=== PATIENT | female | born 1965 | race Caucasian/White ===

== ENCOUNTER 2018-03-20 09:28 | Day surgery (SDC) | payer OTHER ==
[2018-03-20] MEDS ORDERED: LACTATED RINGER'S 1,000 ML IV (10:30)
[2018-03-20] MEDS ORDERED: BUPIVACAINE 0.5% (SDV) 30 ML INJ (11:20)
[2018-03-20] MEDS ORDERED: MIDAZOLAM 1 MG/ML 2 ML INJ (11:26)
[2018-03-20] MEDS ORDERED: ONDANSETRON 4 MG INJ (11:26)
[2018-03-20] MEDS ORDERED: METOCLOPRAMIDE 10 MG INJ (11:26)
[2018-03-20] MEDS ORDERED: FENTAnyl 50 MCG/ML VIAL (11:26)
[2018-03-20] MEDS ORDERED: PROPOFOL 20 ML (11:26)
[2018-03-20] MEDS ORDERED: CEFAZOLIN 1 GM INJ (11:26)
[2018-03-20] MEDS ORDERED: ONDANSETRON 4 MG INJ IV (11:30)
[2018-03-20] MEDS ORDERED: MEPERIDINE 25 MG INJ IV (11:30)
[2018-03-20] MEDS ORDERED: HYDROmorphONE 1 MG/5 ML IV SYRINGE IV ×3 (11:30)
[2018-03-20] MEDS ORDERED: OXYCODONE/ACETAMINOPHEN (5/325) TAB PO ×2 (11:30)
[2018-03-20] MEDS ORDERED: DIPHENHYDRAMINE 50 MG INJ IV (11:30)
[2018-03-20] MEDS: BUPIVACAINE 0.5% (MPF) 30 ML INJ EPI (11:51)
[2018-03-20] MEDS ORDERED: EPHEDrine SULFATE 50 MG/5 ML SYG (12:03)
== END 2018-03-20 14:08 | disposition home or self-care (01) ==
LOC: SDS 09:28
DX: D16.12 Benign neoplasm of short bones of left upper limb (principal)
CPT/HCPCS: 26210; 88307